=== PATIENT | female | born 2000 | race Two or more races ===

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

== ENCOUNTER 2021-03-13 16:41 | Emergency (ER) | payer SELFPAY ==
[~2021-03-13] VITALS: Ht 160 cm; Wt 72.6 kg
[2021-03-13 16:48] VITALS: BP 139/88
[2021-03-14] MEDS ORDERED: SULF800T7 PO (16:10)
[2021-03-14] MEDS ORDERED: ACET-1158 PO (16:10)
== END 2021-03-14 00:30 | disposition left against medical advice (07) ==
LOC: ER 16:41
DX: L02.213 Cutaneous abscess of chest wall (principal); Z53.21 Procedure and treatment not carried out due to patient leaving prior to being seen by health care provider

== ENCOUNTER 2021-03-14 08:48 | Emergency (ER) | payer SELFPAY ==
[~2021-03-14] VITALS: Ht 160 cm; Wt 81.6 kg
[2021-03-14 12:24] VITALS: BP 128/45
[2021-03-14] MEDS ORDERED: LIDOCAINE 1% HCL (LOCAL ANESTH.) INJ 20ML MDV ONE (14:19)
[2021-03-14] MEDS ORDERED: SULF800T7 PO (16:10)
[2021-03-14] MEDS ORDERED: ACET-1158 PO (16:10)
== END 2021-03-14 16:18 | disposition home or self-care (01) ==
LOC: ER 08:48
DX: L02.213 Cutaneous abscess of chest wall (principal)
CPT/HCPCS: 10060; 76604; 99284; J2001

== ENCOUNTER 2021-03-16 08:31 | Emergency (ER) | payer SELFPAY ==
[~2021-03-16] VITALS: Ht 160 cm; Wt 81.6 kg
[~2021-03-16 08:31] MED LIST: ACET-1158 PO; SULF800T7 PO
[2021-03-16 10:13] VITALS: BP 123/74
== END 2021-03-16 10:56 | disposition home or self-care (01) ==
LOC: ER 08:31
DX: L02.213 Cutaneous abscess of chest wall (principal)

== ENCOUNTER 2023-01-28 14:04 | Emergency (ER) | payer MEDICAID ==
[~2023-01-28] VITALS: Ht 157.5 cm; Wt 78.7 kg
[~2023-01-28 14:04] MED LIST changes: -ACET-1158 PO; +ACET500T58 PO; +SULF800T23 PO; -SULF800T7 PO
[2023-01-28 15:52] VITALS: BP 135/85; PULSE 85; RESP 18; O2SAT 98
[2023-01-28] MEDS ORDERED: HYDROcodone-ACET 5/325MG TAB PO ONE (16:45)
[2023-01-28] MEDS ORDERED: TETANUS-DIPTH-ACEL PERTUSSIS 0.5ML SYR Tdap IM ONE (16:45)
[2023-01-28] MEDS: NEOMYCIN-BACITRACIN-POLYM 15GM TOP OINT TOP SCH ×2 (17:32→18:15)
[2023-01-28] MEDS ORDERED: AUG875T PO (18:14)
[2023-01-28] MEDS ORDERED: cefTRIAXone SOD 1,000 MG VL IM ONE (18:15)
== END 2023-01-28 18:14 | disposition home or self-care (01) ==
LOC: ER 14:04
DX: S61.012A Laceration without foreign body of left thumb without damage to nail, initial encounter (principal); S61.052A Open bite of left thumb without damage to nail, initial encounter; Z79.2 Long term (current) use of antibiotics; Z79.899 Other long term (current) drug therapy; W54.0XXA Bitten by dog, initial encounter; Y93.89 Activity, other specified; Y92.89 Other specified places as the place of occurrence of the external cause; Y99.8 Other external cause status
CPT/HCPCS: 12001; 73120; 90471; 90715; 96372; 99284; J0696